=== PATIENT | male | born 1960 | race Caucasian/White ===

== ENCOUNTER 2016-07-02 06:07 | Day surgery (SDC) | payer MEDICARE ==
--- NOTE | 2016-07-01 17:57 | HP ---
BOBBI CHARLES [id number] HISTORY OF PRESENT ILLNESS: Bobbi is a 55-year-old who presented to my office with complaints of a painful bunion, not improved with changes in shoe gear over the past several years, progressively getting worse. He says anytime he is on his feet in or out of his shoes at this point the pain is substantial and he can hardly walk by the of the day. His past treatment has been taping, arch supports, and changes in shoe gear, with no success in treatment. PAST MEDICAL HISTORY: He says his past medical history is centered around the chief complaint. ALLERGIES: Penicillin. CURRENT MEDICATIONS: He will supply his med list on admission. FAMILY HISTORY: No history of hypertension or diabetes in his family. SOCIAL HISTORY: He states five cigarettes a day use of tobacco. No alcohol or substance abuse. PAST SURGICAL HISTORY: None listed. PHYSICAL EXAMINATION: GENERAL: Showed a blood pressure of 128/86. Pulse of 78 and regular. HEENT: Head is normocephalic. No scars or masses noted. External exam of the ears and eyes is negative. Throat shows no masses or inflammation. LUNGS: Clear to auscultation in all mckenna. HEART: Shows a regular rate and rhythm. ABDOMEN: Soft, nontender and nondistended. LOWER EXTREMITY EXAM: Pedal pulses intact. Filling time of 2-3 seconds. Color of skin is pink. NEUROLOGICAL: Gross sensation intact bilaterally. DERMATOLOGIC: Temperature is warm. Texture is dry. Turgor is good. There is positive hair growth to the digits. MUSCULOSKELETAL: He has a pain in the 1st metatarsophalangeal joint on his left side. The joint is swollen and tender to direct pressure. IMAGING: X-rays of the joint show an IM angle of 12 degrees, with a tibial sesamoid position of 5. ASSESSMENT: We have diagnosed him with hallux abductovalgus with painful bunion left foot. We are scheduling him for a bunionectomy with distal osteotomy of the left foot MP joint with possible Kobi osteotomy of the left hallux. All risks and complications inherent to the procedure are gone-over with the patient and he understands these. There are no contraindications in his medical history. He is scheduled for this procedure at [facility] on 07/02/2016, and will be followed at that time.
[~2016-07-02 06:07] MED LIST: IV START KIT ONE; LACTATED RINGERS 1,000 ML ONE
[2016-07-02] MEDS ORDERED: KETAMINE HCL UD SYRINGE 100 MG/2 ML IV ONE (06:59)
[2016-07-02] MEDS ORDERED: FENTANYL 5 ML ONE (06:59)
[2016-07-02] MEDS ORDERED: MIDAZOLAM HCL 5 MG/5 ML VIAL ONE (06:59)
[2016-07-02] MEDS ORDERED: PROPOFOL 40 ML IV ONE (06:59)
[2016-07-02] MEDS ORDERED: BUPIVACAINE 0.5% (PRES FREE) 30 ML VIAL ONE (07:08)
[2016-07-02] MEDS ORDERED: LIDOCAINE 1% (PRES FREE) 30 ML VIAL ONE (07:08)
[2016-07-02] MEDS ORDERED: CLINDAMYCIN 600 MG PREMIX 50 ML IV ONE (07:11)
[2016-07-02 07:29] LABS: HEMATOCRIT 42.2 % (32.0-52.0); HEMOGLOBIN 14.5 gm/l (14.0-18.0)
[2016-07-02] MEDS ORDERED: PROPOFOL 20 ML IV ONE ×2 (07:35→08:37)
[2016-07-02] MEDS ORDERED: ON-Q PUMP/ROPIVACAINE 0.2% 450 ML ONE (08:28)
[2016-07-02] MEDS ORDERED: OXYCODONE HCL 5 MG TABLET PO PRN (08:55)
[2016-07-02] MEDS ORDERED: ON-Q PUMP/ROPIVACAINE 0.2% 400 ML in PREMIX BAG 1 EACH NB SCH (08:55)
--- NOTE | 2016-07-02 14:29 | RAD ---
FOOT - LEFT 2 VIEW COMPARISON: None. HISTORY: Left bunionectomy with distal osteotomy first metatarsal/Kobi osteotomy. Intraoperative radiograph FINDINGS: Views: Left foot lateral and dorsoplantar of the first metatarsal. Bones: Osteotomy of the distal first metatarsal in anatomic alignment. There are 2 screws placed dorsal to plantar, and satisfactory position Joints: Normal Soft tissues: Normal IMPRESSION: 1. Satisfactory appearance of osteotomy and hardware of the left first metatarsal
--- NOTE | 2016-07-05 11:31 | OP ---
Lawrence Walter DATE OF SURGERY: 07/02/2016 SURGEON: Marcial Hernandez M.D. PREOPERATIVE DIAGNOSIS: Hallux abducto valgus with painful bunion deformity left first metatarsophalangeal joint. POSTOPERATIVE DIAGNOSIS: Hallux abducto valgus with painful bunion deformity left first metatarsophalangeal joint. PROCEDURE: Bunionectomy with distal osteotomy of the first metatarsal and Kobi osteotomy of the left hallux. ANESTHESIA: MAC sedation with a local block using 24 mL of 1% lidocaine and 0.5% Marcaine and total ankle block to the left foot. HEMOSTASIS: Ankle tourniquet inflated to 25 mmHg for a total of 48 minutes left ankle. ESTIMATED BLOOD LOSS: Less than 20 mL. MATERIALS: 3-0 Vicryl, 2-0 Prolene, 1 size 10 osteo-staple and two 3.0 cortical cannulated screws measuring 18 mm in length and the On-Q pump. PROCEDURE: The patient was brought into the operating room and laid on the operating room table in supine position. After he was adequately sedated we anesthetized the foot with the above said anesthetic block. Prepped and draped the foot in the standard sterile fashion. Using an Esmarch we exsanguinated blood from the left foot and inflated the ankle tourniquet at this time. Attention was drawn to the dorsum of the left foot where a longitudinal incision was made medial to the extensor hallucis longus tendon running over the metatarsophalangeal joint distally about 2 cm and proximally about 4 cm. This incision was deepened through the epidermis and dermis. All superficial vessels were bovied cautery using Metzenbaum scissors. We deepened through the subcutaneous tissue down to the joint capsule. Using sharp dissection we performed a dorsal capsulotomy. We dissected the capsular tissue off the head of the first metatarsal and off the base of the proximal phalanx. Once we had exposed the prominent medial eminence of the head of the first metatarsal using a sagittal saw we removed this in total. Through the same incision we went into the first intermetatarsal space with Metzenbaum scissors and deepened this down to the conjoining tendon. Using sharp dissection we performed a lateral capsulorrhaphy releasing the conjoining tendon from the base of the proximal phalanx. Once an adequate lateral release was achieved, we matthew our attention back to the medial side of the first metatarsal. At this point, a transverse 0.045 smooth K-wire was driven across the metatarsal head about 1 cm proximal to the articular surface on midline of the metatarsal head in position to length and slightly plantar flexed the metatarsal. At this point, two osteotomy bone cuts were made, one plantarly and one dorsally. The plantar one 15 to 20 degrees, dorsal one about 30 to 40 degrees. These were made through cortices. We removed the 0.045 K-wire and removed capital fragment and opened laterally 3 to 4 mm and retrograde was back on the metatarsal shaft. We temporary fixated with two smooth K-wires. These were then replaced with two 3.0 cannulated cortical screws measuring 18 mm in length. We checked position and noted to be in good anatomical alignment. The hallux was in still slight valgus position. We therefore performed a Kobi osteotomy. A transverse cut was made on the base of the proximal phalanx with hallux about 1 cm from the articular surface distally. This first bone cut was made transversely across the bone and through the medial cortex, but leaving the lateral cortex intact. A second bone cut was made at about 15 to 20 degree angle removing about a 3 to 4 mm wedge of bone leaving the lateral cortex intact again. We compressed the two bone cuts together and fixated this with a 5 pin osteo-staple in standard fashion. We then took another x-ray of this and noted the toe to be in good anatomical alignment. We removed the residual bone off the medial side of the metatarsal head using a sagittal saw and smoothed all bone down using a bone ruchi. Once we had achieved this, we irrigated the wound with normal saline, placed the On-Q pump and closed the periosteum and joint capsule back together with 3-0 Vicryl in a running fashion. We closed the superficial structures in the same manner. Closed the skin with 3-0 Prolene in a horizontal mattress fashion. The wound was dressed with Xeroform gauze and dry sterile dressing. The patient had the tourniquet let down and there was perfusion of the foot. He tolerated the procedure well and left the operating room for recovery with vital signs stable in no apparent distress. Follow up in my office in 72 hours for postoperative check. JOB: [id number]
== END 2016-07-02 09:40 | disposition home or self-care (01) ==
LOC: SDC 06:07
PROVIDERS: ATTEND Podiatrist
DX: M20.12 Hallux valgus (acquired), left foot (principal); M21.612 Bunion of left foot; F17.210 Nicotine dependence, cigarettes, uncomplicated